=== PATIENT | male | born 1940 | race Caucasian/White ===

== ENCOUNTER 2018-12-12 21:31 | Emergency (ER) | payer MEDICARE, BC ==
[~2018-12-12] VITALS: Ht 182.9 cm; Wt 93.2 kg
[2018-12-12 21:34] VITALS: BP 138/63; TEMP 97
[2018-12-12] MEDS ORDERED: PROSCAR 5MG5 MG PO (22:02)
[2018-12-12] MEDS ORDERED: FLOMAX 0.40.4 MG/CAP PO (22:02)
[2018-12-12] MEDS ORDERED: PRINZIDE 12.5 M1 TAB PO (22:03)
[2018-12-12] MEDS ORDERED: ZETIA 10MG TAB10 MG PO (22:03)
[2018-12-12] MEDS ORDERED: MEN'S MULTIVIT1 EAC1 PO (22:04)
[2018-12-12] MEDS ORDERED: CALCIUM CARBON650 M2 (22:04)
[2018-12-12] MEDS ORDERED: ASPIRIN 81M81 MG/TA2 PO (22:04)
[2018-12-12] MEDS ORDERED: EPA FISH OIL1 SGL PO (22:04)
[2018-12-12] MEDS ORDERED: CRUTCHES MC (22:37)
[2018-12-12 23:05] VITALS: PULSE 59
== END 2018-12-12 23:02 | disposition home or self-care (01) ==
LOC: COL.ER 21:31
DX: S89.91XA Unspecified injury of right lower leg, initial encounter (principal); M25.561 Pain in right knee; I10 Essential (primary) hypertension; E78.5 Hyperlipidemia, unspecified; N40.0 Benign prostatic hyperplasia without lower urinary tract symptoms; Z79.82 Long term (current) use of aspirin; Z96.643 Presence of artificial hip joint, bilateral; Z96.652 Presence of left artificial knee joint; X50.1XXA Overexertion from prolonged static or awkward postures, initial encounter; Y92.009 Unspecified place in unspecified non-institutional (private) residence as the place of occurrence of the external cause
CPT/HCPCS: L1846

== ENCOUNTER 2020-01-06 10:36 | Day surgery (SDC) | payer MEDICARE, BC ==
[~2020-01-06] VITALS: Ht 182.9 cm; Wt 91.2 kg
[2020-01-06] VITALS (252 sets, daily range): BP systolic 110–145; BP diastolic 52–76; PULSE 42–62; TEMP 97.9–98.2; O2SAT 93–100
[~2020-01-06 10:36] MED LIST: ASPIRIN 81M81 MG/TA2 PO; CALCIUM CARBON650 M2; CRUTCHES MC; EPA FISH OIL1 SGL PO; FLOMAX 0.40.4 MG/CAP PO; MEN'S MULTIVIT1 EAC1 PO; PRINZIDE 12.5 M1 TAB PO; PROSCAR 5MG5 MG PO; ZETIA 10MG TAB10 MG PO
[2020-01-06 11:57] LABS: INR 1.1 (0.8-3.0); PROTHROMBIN TIME 11.9 SECONDS (9.7-12.8)
[2020-01-06 12:00] LABS: PARTIAL THROMBOPLASTIN TIME 35.7 SECONDS (26.0-37.0)
[2020-01-06 12:02] LABS: CALCIUM 9.4 mg/dL (8.4-10.2); CREATININE, serum 0.79 (0.66-1.25); POTASSIUM 3.7 mmol/L (3.4-5.0)
[2020-01-06 12:06] LABS: HEMATOCRIT 45.5 % (42.0-52.0); HEMOGLOBIN 15.5 g/dl (13.5-18.0); MEAN CELL VOLUME 90 fl (80.0-100.0); MEAN CORPUSCULAR HEMOGLOBIN 31 pg (27.0-31.0); MEAN CORPUSCULAR HGB CONC 34 g/dl (33.0-37.0); MEAN PLATELET VOLUME 10.6 fl (7.4-10.4); PLATELET COUNT 221 K/mm3 (130-400); RED BLOOD COUNT 5.05 M/mm3 (4.20-5.60); REDCELL DISTRIBUTION WIDTH-CV 14.1 % (11.5-14.5)
--- NOTE | 2020-01-06 12:52 | NUR ---
SEE MERGE DOCUMENTATION FOR MEDICATION ADMINISTRATION AND INTRA/POST PROCEDURE SEDATION ASSESSMENTS.
--- NOTE | 2020-01-06 14:25 | NUR ---
Pt arrived on CVL cart and transfered to ICU beds, VSS, pt AAOx4, spouse at bedside, pt rating chest pain 0/10. Pt tolerating PO without difficulty. Call light in reach
--- NOTE | 2020-01-06 14:50 | NUR ---
MD Risa called to notify of Bradycardia (HR 40-50s). Call straight to voicemail, mailbox full unable to leave message
--- NOTE | 2020-01-06 15:10 | NUR ---
MD Risa notified: Pt's HR upon ICU arrival in 60's, HR now in low-mid 40's - asymptomatic No orders recieved other than continue to monitor
--- NOTE | 2020-01-06 19:30 | NUR ---
Received report from DAKOTAH Adhikari.
[2020-01-07] VITALS (411 sets, daily range): BP systolic 116–128; BP diastolic 53–67; PULSE 47–56; TEMP 97.7–98; O2SAT 93–100
[2020-01-07 06:40] LABS: BASO % 0.6 % (0.0-2.0); EOS # 0.2 (0.0-0.7); EOS % 3.3 % (0-4.0); GRAN # 3.9 (1.4-6.5); GRAN % 57.2 % (42.2-75.2); HEMATOCRIT 42.1 % (42.0-52.0); HEMOGLOBIN 14.2 g/dl (13.5-18.0); LYMPH % 29.9 % (20.0-51.0); MEAN CELL VOLUME 91 fl (80.0-100.0); MEAN CORPUSCULAR HEMOGLOBIN 31 pg (27.0-31.0); MEAN CORPUSCULAR HGB CONC 34 g/dl (33.0-37.0); MONO # 0.6 (0.1-0.6); MONO % 8.9 % (1.7-9.3); PLATELET COUNT 205 K/mm3 (130-400); RED BLOOD COUNT 4.61 M/mm3 (4.20-5.60); REDCELL DISTRIBUTION WIDTH-CV 14.3 % (11.5-14.5)
[2020-01-07 06:55] LABS: CALCIUM 8.9 mg/dL (8.4-10.2); CREATININE, serum 0.74 (0.66-1.25); POTASSIUM 4.1 mmol/L (3.4-5.0)
--- NOTE | 2020-01-07 07:40 | NUR ---
Report given to DAKOTAH Groves.
[2020-01-07] MEDS ORDERED: ASPIRIN 81M81 MG/TA2 PO (09:57)
[2020-01-07] MEDS ORDERED: BRILINTA90 MG PO (09:58)
[2020-01-07] MEDS ORDERED: LIPITOR20 MG PO (09:58)
== END 2020-01-07 11:45 | disposition home or self-care (01) ==
LOC: COL.CAR 10:36 → IMCU 18:31 → COL.CAR 01-07 11:45
PROVIDERS: Internal Medicine Interventional Cardiology
DX: I25.10 Atherosclerotic heart disease of native coronary artery without angina pectoris (principal); R94.39 Abnormal result of other cardiovascular function study; I10 Essential (primary) hypertension; E78.5 Hyperlipidemia, unspecified; Z79.82 Long term (current) use of aspirin
CPT/HCPCS: OP; C1725; C1769; C1874; C1887; C9600; J0583; J1644; J3010; Q9967

== ENCOUNTER 2020-05-11 07:15 | Day surgery (SDC) | payer MEDICARE, BC ==
[~2020-05-11] VITALS: Ht 182.9 cm; Wt 87.4 kg
[2020-05-11] VITALS (7 sets, daily range): BP systolic 123–135; BP diastolic 48–62; PULSE 51–66; TEMP 97.3–98
[~2020-05-11 07:15] MED LIST changes: +BRILINTA90 MG PO; +LIPITOR20 MG PO
[2020-05-11] MEDS ORDERED: PLAVIX 75MG TAB75 MG PO (08:16)
[2020-05-11] MEDS ORDERED: LIPITOR20 MG PO (08:19)
[2020-05-11] MEDS ORDERED: ASPIRIN E.C. 8181 MG PO (08:20)
[2020-05-11] MEDS ORDERED: ONE-A-DAY ESSE1 EACH PO (08:20)
--- NOTE | 2020-05-11 08:22 | NUR ---
TO RM AT 0720- CALL LIGHT IN REACH AT BEDSIDE
--- NOTE | 2020-05-11 10:43 | NUR ---
Patient returns to room 1 per cart from PACU accompanied by Evelyn CLAIRE and is awake and alert. IV fluids infusing and site is clear. Siderails up x2 and call light in reach. Spouse in room. Denies pain or nausea. Given water and coffe to drink.
--- NOTE | 2020-05-11 10:58 | NUR ---
Resting and talkin with spouse. Continues to sip on coffee and water.
--- NOTE | 2020-05-11 11:13 | NUR ---
Continues to sip on water and coffee.
--- NOTE | 2020-05-11 11:28 | NUR ---
Eating toast and drinking second cup of coffee. Spouse remains in the room. IV fluids continue to infuse.
--- NOTE | 2020-05-11 11:43 | NUR ---
Tolerated toast and coffee. Denies pain or nausea.
--- NOTE | 2020-05-11 11:46 | NUR ---
Assisted up to the bathroom and gait steady.
--- NOTE | 2020-05-11 12:10 | NUR ---
RECEIVED DISCHARGE INSTRUCTIONS AND VERBALIZED UNDERSTANDING DISCONTINUED IV AND INT- CATHETER INTACT.
--- NOTE | 2020-05-11 12:30 | NUR ---
DISCHARGED PER WC BY NURSING STAFF TO PRIVATE CAR IN CARE OF ELSA
--- NOTE | 2020-05-11 13:02 | NUR ---
AMBULATED PATIENT BACK TO ROOM. SLOW STEAD GAIT WITH ASSIST.
== END 2020-05-11 12:30 | disposition home or self-care (01) ==
LOC: SDCO 07:15
DX: C67.5 Malignant neoplasm of bladder neck (principal); E78.5 Hyperlipidemia, unspecified; I10 Essential (primary) hypertension; Z90.49 Acquired absence of other specified parts of digestive tract; Z90.79 Acquired absence of other genital organ(s); Z79.82 Long term (current) use of aspirin; Z79.02 Long term (current) use of antithrombotics/antiplatelets; Z11.59 Encounter for screening for other viral diseases
CPT/HCPCS: J0690; J1100; J2405; J2704; J7120

== ENCOUNTER 2021-01-16 04:40 | Emergency (ER) | payer MEDICARE, BC ==
[~2021-01-16] VITALS: Ht 182.9 cm; Wt 86.4 kg
[~2021-01-16 04:40] MED LIST changes: +ASPIRIN E.C. 8181 MG PO; +ONE-A-DAY ESSE1 EACH PO; +PLAVIX 75MG TAB75 MG PO
[2021-01-16 04:46] VITALS: TEMP 98.5
[2021-01-16] MEDS ORDERED: PREDNISONE20 MG PO (05:17)
[2021-01-16] MEDS ORDERED: CEPHALEXIN500 M1 PO (05:17)
[2021-01-16 05:30] VITALS: BP 173/72; PULSE 59
== END 2021-01-16 05:30 | disposition home or self-care (01) ==
LOC: COL.ER 04:40
DX: L25.9 Unspecified contact dermatitis, unspecified cause (principal); I25.10 Atherosclerotic heart disease of native coronary artery without angina pectoris; Z79.01 Long term (current) use of anticoagulants; Z79.02 Long term (current) use of antithrombotics/antiplatelets; Z79.82 Long term (current) use of aspirin
CPT/HCPCS: J7512